=== PATIENT | female | born 1995 | race Caucasian/White ===

== ENCOUNTER 2024-03-26 08:13 | Emergency (ER) | payer OTHER ==
[2024-03-26] MEDS ORDERED: ONDANSETRON 4 MG/2 ML VIAL ONE (08:53)
[2024-03-26] MEDS ORDERED: MORPHINE 4 MG/ML SYR ONE ×2 (08:53→11:37)
[2024-03-26 09:07] LABS: Absolute Eosinophils 0.1 K/uL (0-0.5); Absolute Lymphocytes (CBC) 1.6 K/uL (0.7-4.9); Absolute Monocytes 0.6 K/uL (0.1-1.3); Absolute Neutrophil 3.9 K/uL (1.8-8.0); Basophils % 0.4 % (0-1.3); Eosinophils % 0.8 % (0-4.4); Hematocrit 42.3 % (36.0-45.0); Hemoglobin 14.3 g/dL (12.0-15.0); Lymphocytes % 26.5 % (15.3-44.8); MCH 28.1 pg (27.0-35.0); MCHC 33.7 g/dL (32.0-36.0); MCV 83.5 fL (80-100); MPV 8.5 fL (7.6-11.3); Monocytes % 9.1 % (3.3-12.3); Neutrophils % 63.2 % (41.7-73.7); Nucleated Red Blood Cells % 0.1 % (0-0); Platelets 310 thou/uL (152-406); RBC Red Blood Cell Count 5.07 M/uL (3.86-4.86); Red Cell Distribution Width 13.6 % (12.1-15.2)
[2024-03-26 09:16] LABS: Specific Gravity 1.028 (1.005-1.030); Sqamous Epithelial <5 /HPF (None Seen); Urine Bacteria None Seen /HPF (<20); Urine Bilirubin NEGATIVE (Negative); Urine Blood 1+ (Negative); Urine Clarity Turbid (Clear); Urine Color Yellow (Yellow); Urine Crystals Unidentified Few /HPF (None Seen); Urine Culture Reflex Order NOT NEEDED; Urine Glucose NEGATIVE (Negative); Urine Ketones NEGATIVE (Negative); Urine Microscopic Reflex YN ORDER UMIC; Urine Mucus 4+ /HPF (None Seen); Urine Nitrite NEGATIVE (Negative); Urine Protein TRACE (Negative); Urine RBC <5 /HPF (None Seen); Urine Urobilinogen Normal (Normal); Urine WBC <5 /HPF (<5)
[2024-03-26 09:24] LABS: Albumin 3.9 g/dL (3.4-5.0); Anion Gap 9.6 mEq/L (5.0-15.0); Bilirubin Total 0.8 mg/dL (0.2-1.0); Globulin 3.8 g/dL (2.3-3.5); Potassium 3.6 mEq/L (3.5-5.1); Protein, Total 7.7 g/dL (6.4-8.2)
--- NOTE | 2024-03-26 09:44 | RAD REPORT ---
EXAMINATION: US Abdomen Exam Limited CLINICAL HISTORY: right flank pain Bed Name: 4 COMPARISON: None. TECHNIQUE: Limited upper abdominal grayscale and color flow sonographic images. FINDINGS: Gallbladder: Normal. No evidence of gallstones or gallbladder wall thickening. Bile ducts: No intrahepatic or extrahepatic biliary dilatation. Common bile duct measures 0.4 mm. Liver: Visualized portions of the liver demonstrate normal echogenicity with no suspicious findings. Fluid: No ascites. IMPRESSION: No abnormalities on right upper quadrant ultrasound.
--- NOTE | 2024-03-26 10:14 | RAD REPORT ---
EXAMINATION: US RETROPERITONEUM CLINICAL INDICATION: [facility] MAIN R/O STONES...FLANK PAIN TECHNIQUE: Real-time ultrasonography of the kidneys was performed. COMPARISON: 03/26/2024 FINDINGS: RIGHT KIDNEY: Right renal length measurement: 9.6 cm. Normal in echogenicity and size. Subtle hilar 3 mm echogenic nonshadowing focus could represent a vascular structure or a small calculus. No solid mass or hydronephrosis. LEFT KIDNEY: Left renal length measurement: 9.7 cm. Normal in echogenicity and size. Echogenic interp olar 5 mm focus may represent a small calculus. No solid mass or hydronephrosis. ADDITIONAL FINDINGS: None. IMPRESSION: Left renal interpolar 5 mm calculus, and questionable tiny hilar right renal 3 mL focus which may rep resent a vascular structure or a small calculus. No other acute or significant abnormalities.
[2024-03-26] MEDS ORDERED: TAMSULOSIN 0.4 MG SR CAP ONE (10:32)
[2024-03-26] MEDS ORDERED: KETOROLAC 30 MG/ML INJ ONE (10:32)
--- NOTE | 2024-03-26 12:37 | ER ---
Nurse's Notes [facility] Name: Kirsten Valadez Age: 28 yrs Sex: Female : 1995 Arrival Date: 03/26/2024 Time: 08:13 Bed 4 Private MD: Diagnosis: Calculus of ureter Presentation: 03/26 08:27 Chief complaint: Patient states: right sided abd pain radiating to back , started this iw morning, + nausea , no urinary symptoms. Coronavirus screen: At this time, the client does not indicate any symptoms associated with coronavirus-19. Ebola Screen: No symptoms or risks identified at this time. Initial Sepsis Screen: Does the patient meet any 2 criteria? No. Patient's initial sepsis screen is negative. Does the patient have a suspected source of infection? No. Patient's initial sepsis screen is negative. Risk Assessment: Do you want to hurt yourself or someone else? Patient reports no desire to harm self or others. Onset of symptoms was March 26, 2024. 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 - Infectious Disease History:: Denies. - Social history:: Smoking status: Patient denies any tobacco usage or history of. - Family history:: not pertinent. - Hospitalizations: : No recent hospitalization is reported. Screenin:[address] [facility] ED Fall Risk Assessment (Adult) History of falling in the last 3 months, rs5 including since admission No falls in past 3 months (0 pts) Confusion or Disorientation No (0 pts) Intoxicated or Sedated No (0 pts) Impaired Gait No (0 pts) Mobility Assist Device Used No (0 pt) Altered Elimination No (0 pt) Score/Fall Risk Level 0 - 2 = Low Risk Oriented to surroundings, Maintained a safe environment. Abuse screen: Denies threats or abuse. Nutritional screening: No deficits noted. Tuberculosis screening: No symptoms or risk factors identified. Assessment: 08:30 General: Appears in no apparent distress. uncomfortable, Behavior is calm, cooperative. rs5 Pain: Complains of pain in right flank Pain currently is 8 out of 10 on a pain scale. Quality of pain is described as aching, Is continuous. Neuro: Level of Consciousness is awake, alert, obeys commands, Oriented to person, place, time, situation. Cardiovascular: Patient's skin is warm and dry. Respiratory: Airway is patent Respiratory effort is even, unlabored, Respiratory pattern is regular, symmetrical. GI: Abdomen is round non-distended, Abd is soft and non tender X 4 quads. Reports nausea. : No signs and/or symptoms were reported regarding the genitourinary system. EENT: No signs and/or symptoms were reported regarding the EENT system. Derm: Skin is intact, Skin is pink, warm \T\ dry. Musculoskeletal: Range of motion: intact in all extremities. 09:35 Reassessment: Patient and/or family updated on plan of care and expected duration. Pain rs5 level reassessed. Patient is alert, oriented x 3, equal unlabored respirations, skin warm/dry/pink. 10:40 Reassessment: Patient and/or family updated on plan of care and expected duration. Pain rs5 level reassessed. Patient is alert, oriented x 3, equal unlabored respirations, skin warm/dry/pink. 12:01 Reassessment: Patient and/or family updated on plan of care and expected duration. Pain rs5 level reassessed. Patient is alert, oriented x 3, equal unlabored respirations, skin warm/dry/pink. 12:45 Reassessment: Patient and/or family updated on plan of care and expected duration. Pain rs5 level reassessed. Patient is alert, oriented x 3, equal unlabored respirations, skin warm/dry/pink. Vital Signs: 08:27 BP 126 / 92; Pulse 95; Resp 18; Temp 97.4; Pulse Ox 98% ; Weight 108.86 kg; Height 5 iw ft. 7 in. ; Pain 8/10; 12:35 BP 124 / 88; Pulse 74; Resp 17; Pulse Ox 98% on R/A; rs5 08:27 Body Mass Index 37.59 (108.86 kg, 170.18 cm) iw 08:27 Pain Scale: Adult iw ED Course: 08:17 Patient arrived in ED. sj2 08:18 Tod Jensen MD is Attending Physician. rn 08:28 Triage completed. iw 08:29 Arm band placed on. iw 08:30 Inserted saline lock: 22 gauge in left antecubital area, using aseptic technique. Blood rs5 collected. Flushed with 10 mL NS. 08:33 Patient has correct armband on for positive identification. Placed in gown. Bed in low rs5 position. Call light in reach. Side rails up X2. 08:33 No provider procedures requiring assistance completed. rs5 08:42 Perez Pack, FELIX is Primary Nurse. rs5 09:21 Abdomen Exam Limited In Process Unspecified. EDMS 09:21 Renal Ultrasound-Complete In Process Unspecified. EDMS 12:48 IV discontinued, intact, bleeding controlled, No redness/swelling at site. Pressure rs5 dressing applied. 12:49 Provided Education on: discharge instructions . rs5 Administered Medications: 08:58 Drug: Ondansetron IVP 4 mg IVP once; over 2 minutes Route: IVP; Site: left antecubital; rs5 09:22 Follow up: Response: No adverse reaction rs5 08:58 Drug: morphine IVP or IV 4 mg IVP once over 4 mins Route: IVP; Infused Over: 4 mins; rs5 Site: left antecubital; 09:22 Follow up: Response: No adverse reaction; Pain is decreased rs5 10:38 Drug: Ketorolac IVP 30 mg IVP once Route: IVP; Site: left antecubital; rs5 11:01 Follow up: Response: No adverse reaction; Pain is decreased rs5 10:38 Drug: Flomax PO 0.4 mg PO once Route: PO; rs5 11:22 Follow up: Response: No adverse reaction rs5 11:40 Drug: morphine IVP or IV 4 mg IVP once over 4 mins Route: IVP; Infused Over: 4 mins; rs5 Site: left antecubital; 12:01 Follow up: Response: No adverse reaction; Pain is decreased rs5 Medication: 08:59 VIS not applicable for this client. rs5 Outcome: 12:37 Discharge ordered by . rn 12:48 Discharged to home ambulatory, with family, rs5 12:48 Condition: stable rs5 12:48 Discharge instructions given to patient, family, Instructed on discharge instructions, follow up and referral plans. medication usage, Demonstrated understanding of instructions, follow-up care, medications, Prescriptions given X 4, 12:50 Patient left the ED. iw Signatures: Dispatcher [employer] Elham Carrillo RN RN iw Nieto, Roman, MD MD rn Sotelo, Ricky, RN RN rs5 Jordy Mendoza 2
--- NOTE | 2024-03-26 12:37 | EDPHYS ---
Physician Documentation [facility] Name: Kirsten Valadez Age: 28 yrs Sex: Female : 1995 Arrival Date: 03/26/2024 Time: 08:13 Bed 4 Private MD: ED Physician Tod Jensen HPI: 03/26 09:56 This 28 yrs old Female presents to ER via Ambulatory with complaints of Flank Pain, rn Nausea, RIGHT SIDE PAIN. 09:56 The patient complains of pain in the right mid back. The pain radiates to the abdomen. rn Onset: The symptoms/episode began/occurred this morning. Modifying factors: The symptoms are alleviated by nothing. the symptoms are aggravated by nothing. Severity of pain: At its worst the pain was moderate in the emergency department the pain is unchanged. The patient has not experienced similar symptoms in the past. Patient reports sudden onset right flank and right upper abdomen pain that began this morning, more pain in the flank. Associated with nausea. No urinary symptoms. No history of kidney stone or gallbladder problems. Denies any fever or chills. Was completely fine when went to bed last night. No sick contacts. Denies . No family history of kidney stones either.. 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 - Infectious Disease History:: Denies. - Social history:: Smoking status: Patient denies any tobacco usage or history of. - Family history:: not pertinent. - Hospitalizations: : No recent hospitalization is reported. ROS: 09:56 Constitutional: Negative for fever, chills, and weight loss, Neck: Negative for injury, rn pain, and swelling, Cardiovascular: Negative for chest pain, palpitations, and edema, Respiratory: Negative for shortness of breath, cough, wheezing, and pleuritic chest pain, Abdomen/GI: Negative for vomiting, diarrhea, and constipation, Back: Positive for right flank pain : Negative for injury, bleeding, discharge, and swelling, MS/Extremity: Negative for injury and deformity, Skin: Negative for injury, rash, and discoloration, Neuro: Negative for headache, weakness, numbness, tingling, and seizure, Exam: 09:56 Constitutional: This is a well developed, well nourished patient who is awake, alert, rn appears uncomfortable but ambulatory to room without assistance Cardiovascular: Regular rate and rhythm. No pulse deficits. Respiratory: No increased work of breathing, no retractions or nasal flaring. Abdomen/GI: Soft, no focal tenderness. No rebound or guarding. Negative Blackman. Back: No spinal tenderness. No costovertebral tenderness. Some pain reproducible with range of motion of back MS/ Extremity: Pulses equal, no cyanosis. Neurovascular intact. Full, normal range of motion. Equal circumference. Neuro: Awake and alert, GCS 15 Vital Signs: 08:27 BP 126 / 92; Pulse 95; Resp 18; Temp 97.4; Pulse Ox 98% ; Weight 108.86 kg; Height 5 iw ft. 7 in. ; Pain 8/10; 12:35 BP 124 / 88; Pulse 74; Resp 17; Pulse Ox 98% on R/A; rs5 08:27 Body Mass Index 37.59 (108.86 kg, 170.18 cm) iw 08:27 Pain Scale: Adult iw MDM: 08:18 Medical Screening Exam initiated rn 12:35 Differential diagnosis: nephrolithiasis, pyelonephritis, UTI. Data reviewed: vital rn signs, nurses notes, lab test result(s), radiologic studies, ultrasound, and as a result, I will discharge patient. Counseling: I had a detailed discussion with the patient and/or guardian regarding the historical points, exam findings, and any diagnostic results supporting the discharge/admit diagnosis, lab results, radiology results, the need for outpatient follow up, to return to the emergency department if symptoms worsen or persist or if there are any questions or concerns that arise at home. Special discussion: I discussed with the patient/guardian in detail that at this point there is no indication for admission to the hospital. It is understood, however, that if the symptoms persist or worsen the patient needs to return immediately for re-evaluation. ED course: Patient feels much better, ultrasound shows 3 mm stone on the right side where patient's pain is located. Gallbladder ultrasound without acute findings. Labs unremarkable. Will discharge home now that pain is controlled and patient requesting to go home. Return precautions given and understood.. 03/26 08:40 Order name: CBC with Diff; Complete Time: 09:56 rn 03/26 08:40 Order name: CMP; Complete Time: 09:56 rn 03/26 08:40 Order name: Lipase; Complete Time: 09:56 rn 03/26 08:40 Order name: Test, Urine; Complete Time: 09:56 rn 03/26 08:40 Order name: Urinalysis w/ reflexes; Complete Time: 09:56 rn 03/26 08:53 Order name: Abdomen Exam Limited; Complete Time: 09:56 EDMS 03/26 08:54 Order name: Renal Ultrasound-Complete; Complete Time: 10:26 EDMS 03/26 08:40 Order name: IV Saline Lock; Complete Time: 08:58 rn 03/26 08:40 Order name: Labs collected and sent; Complete Time: 08:58 rn Administered Medications: 08:58 Drug: Ondansetron IVP 4 mg IVP once; over 2 minutes Route: IVP; Site: left antecubital; rs5 09:22 Follow up: Response: No adverse reaction rs5 08:58 Drug: morphine IVP or IV 4 mg IVP once over 4 mins Route: IVP; Infused Over: 4 mins; rs5 Site: left antecubital; 09:22 Follow up: Response: No adverse reaction; Pain is decreased rs5 10:38 Drug: Ketorolac IVP 30 mg IVP once Route: IVP; Site: left antecubital; rs5 11:01 Follow up: Response: No adverse reaction; Pain is decreased rs5 10:38 Drug: Flomax PO 0.4 mg PO once Route: PO; rs5 11:22 Follow up: Response: No adverse reaction rs5 11:40 Drug: morphine IVP or IV 4 mg IVP once over 4 mins Route: IVP; Infused Over: 4 mins; rs5 Site: left antecubital; 12:01 Follow up: Response: No adverse reaction; Pain is decreased rs5 Disposition Summary: 03/26/24 12:37 Discharge Ordered Notes: Location: Home rn Problem: new rn Symptoms: have improved rn Condition: Stable rn Diagnosis - Calculus of ureter rn Followup: rn - With: Private Physician - When: As needed - Reason: Recheck today's complaints, Re-evaluation by your physician Discharge Instructions: - Discharge Summary Sheet rn - Kidney Stones rn - Renal Colic rn Forms: - Work release form iw - Medication Reconciliation Form rn - Antibiotic pattern filer - Prescription Opioid Use rn - Patient Portal Instructions rn - Leadership Thank You Letter rn Prescriptions: - Flomax 0.4 mg Oral capsule - take 1 capsule ORAL route every 24 hours As needed stop taking once you feel rn that you have passed your stone; 7 capsule; Refills: 0, Product Selection Permitted - ondansetron 4 mg Oral Tablet,disintegrating - take 1 tablet ORAL route every 8 hours As needed; 12 tablet; Refills: 0, rn Product Selection Permitted - Cipro 500 mg Oral Tablet - take 1 tablet ORAL route every 12 hours for 7 days; 14 tablet; Refills: 0, rn Product Selection Permitted - Tramadol 50 mg Oral Tablet - take 1 tablet ORAL route every 8 hours as needed; 12 tablet; Refills: 0, rn Product Selection Permitted Signatures: Dispatcher [employer] Elham Carrillo RN RN iw Nieto, Roman, MD MD rn Sotelo, Ricky, RN RN rs5 Corrections: (The following items were deleted from the chart) 08:41 08:40 CBC+H.LAB.BRZ ordered. EDMS EDMS 08:41 08:40 COMPREHENSIVE METABOLIC PANEL+C.LAB.BRZ ordered. EDMS EDMS 08:41 08:40 LIPASE+C.LAB.BRZ ordered. EDMS EDMS 08:41 08:40 Test, Urine+UC.LAB.BRZ ordered. EDMS EDMS 08:41 08:40 Urinalysis+U.LAB.BRZ ordered. EDMS EDMS 08:41 08:41 Abdomen Complete+US.RAD.BRZ ordered. EDMS EDMS
[2024-03-26 12:55] VITALS: BP 126/92; TEMP 97.4; O2SAT 98
== END 2024-03-26 12:50 | disposition home or self-care (01) ==
LOC: ER 08:13
DX: N20.1 Calculus of ureter (principal)
CPT/HCPCS: 85025; 81001; 36415; 81025; 83690; 80053; 76705; 76770; 96375; 96374; 99284; J2405